=== PATIENT | male | born 1940 | race Caucasian/White ===

== ENCOUNTER 2018-06-04 08:02 | Outpatient (CLI) | payer OTHER ==
[~2018-06-04 08:02] MED LIST: CLONAZEPAM1 MG PO; DOCUSATE SODIU100 MG PO; PERCOCET 5/3251 TAB PO
== END 2018-06-04 08:05 | disposition home or self-care (01) ==
LOC: SONOGRAMA 08:02
DX: E04.1 Nontoxic single thyroid nodule (principal)

== ENCOUNTER 2020-04-27 06:40 | Day surgery (SDC) | payer OTHER | END 2020-04-27 12:29 | disposition home or self-care (01) | LOC: AMB-ENDOS 06:40 | PROVIDERS: ATTEND Surgery | DX: D12.3 Benign neoplasm of transverse colon (principal); K64.1 Second degree hemorrhoids; Z20.828 Contact with and (suspected) exposure to other viral communicable diseases ==

== ENCOUNTER 2022-02-03 10:30 | Inpatient (IN) | payer OTHER ==
[~2022-02-03] VITALS: Ht 188 cm; Wt 93.0 kg
[2022-02-03] MEDS ORDERED: JANUMET XR 50-1 EAC1 PO (13:44)
[2022-02-03] MEDS ORDERED: TENORMIN25 MG PO (13:44)
[2022-02-03] MEDS ORDERED: GLIPIZIDE ER10 MG PO (13:45)
[2022-02-08] MEDS ORDERED: COLACE100 MG PO (09:53)
[2022-02-08] MEDS ORDERED: AMOX-CLAV 875-1 EACH PO (09:55)
[2022-02-08] MEDS ORDERED: PERCOCET 5-3251 EACH PO (09:55)
[2022-02-08] MEDS ORDERED: MEDROLPACK PO (09:55)
[2022-02-08] MEDS ORDERED: NEURONTIN800 MG PO (09:55)
== END 2022-02-10 11:16 | disposition home or self-care (01) | DRG 455 ==
LOC: O/R 02-08 05:15 → SURH 02-08 10:30 → PED 02-08 15:48
PROVIDERS: ADMIT Orthopaedic Surgery Orthopaedic Surgery of the Spine; ATTEND Orthopaedic Surgery Orthopaedic Surgery of the Spine
PROC: 0SG1071 Fusion of 2 or more Lumbar Vertebral Joints with Autologous Tissue Substitute, Posterior Approach, Posterior Column, Open Approach (ICD-10-PCS; 2022-02-08)
PROC: 0ST20ZZ Resection of Lumbar Vertebral Disc, Open Approach (ICD-10-PCS; 2022-02-08)
PROC: 0QB30ZZ Excision of Left Pelvic Bone, Open Approach (ICD-10-PCS; 2022-02-08)
PROC: 07DR0ZZ Extraction of Iliac Bone Marrow, Open Approach (ICD-10-PCS; 2022-02-08)
PROC: 0SG10A0 Fusion of 2 or more Lumbar Vertebral Joints with Interbody Fusion Device, Anterior Approach, Anterior Column, Open Approach (ICD-10-PCS; principal; 2022-02-08 14:00)
DX: M48.062 Spinal stenosis, lumbar region with neurogenic claudication (principal); M51.36 Other intervertebral disc degeneration, lumbar region; M96.1 Postlaminectomy syndrome, not elsewhere classified; M41.86 Other forms of scoliosis, lumbar region; I10 Essential (primary) hypertension; E11.9 Type 2 diabetes mellitus without complications

== ENCOUNTER 2022-12-29 08:23 | Outpatient (CLI) | payer OTHER ==
[~2022-12-29 08:23] MED LIST changes: +AMOX-CLAV 875-1 EACH PO; +COLACE100 MG PO; +GLIPIZIDE ER10 MG PO; +JANUMET XR 50-1 EAC1 PO; +MEDROLPACK PO; +NEURONTIN800 MG PO; +PERCOCET 5-3251 EACH PO; +TENORMIN25 MG PO
== END 2022-12-29 08:26 | disposition home or self-care (01) ==
LOC: SONOGRAMA 08:23
PROVIDERS: ATTEND Pathology Anatomic Pathology & Clinical Pathology
DX: D34 Benign neoplasm of thyroid gland (principal); E04.9 Nontoxic goiter, unspecified